=== PATIENT | male | born 1990 | race Caucasian/White ===

== ENCOUNTER 2018-08-12 14:27 | Emergency (ER) | payer OTHER ==
[2018-08-12 14:48] VITALS: BP 127/77
--- NOTE | 2018-08-12 15:02 | ED ---
Throat Pain/Nasal Congestion - HPI Summary HPI Summary: Pt complains of left ear pain. he states that it feels full. he took motrin this am without any significant relief. he denies any trauma, fever, chills, n/ v. - History of Current Complaint Chief Complaint: UCEar Hx Obtained From: Patient Onset/Duration: Sudden Onset Severity: Mild Associated Signs And Symptoms: Negative: Dysphagia, FB Sensation, Wheezing, Sinus Discomfort, Nasal Discharge - Epiglottits Risk Factors Epiglottis Risk Factors: Negative - Allergies/Home Medications Allergies/Adverse Reactions: Allergies Allergy/AdvReac Type Severity Reaction Status Date / Time No Known Allergies Allergy Verified 08/12/18 14:45 Home Medications: Home Medications Lisinopril TAB* [Prinivil TAB*] 10 mg PO DAILY 08/12/18 [History Confirmed 08/12] PMH/Surg Hx/FS Hx/Imm Hx Previously Healthy: Yes Endocrine/Hematology History: Denies: Hx Diabetes Cardiovascular History: Reports: Hx Hypertension Respiratory History: Denies: Hx Asthma Infectious Disease History: No Infectious Disease History: Denies: Traveled Outside the [place] in Last 30 Days - Family History Known Family History: Positive: None - Social History Alcohol Use: Weekly Alcohol Amount: once a week Substance Use Type: Reports: None Smoking Status (MU): Heavy Every Day Tobacco Smoker Type: Cigarettes Amount Used/How Often: 1/2 ppd Length of Time of Smoking/Using Tobacco: 6 years Review of Systems Constitutional: Negative Eyes: Negative Positive: Ear Ache. Negative: Epistaxis, Dental Pain, Sore Throat, Nasal Discharge Cardiovascular: Negative Respiratory: Negative Gastrointestinal: Negative Genitourinary: Negative Musculoskeletal: Negative Skin: Negative Neurological: Negative Psychological: Normal All Other Systems Reviewed And Are Negative: No Physical Exam Triage Information Reviewed: Yes Vital Signs On Initial Exam: Initial Vitals Temp Pulse Resp BP Pulse Ox 97.9 F 95 15 127/77 100 08/12/18 14:44 08/12/18 14:44 08/12/18 14:44 08/12/18 14:44 08/12/18 14:44 Vital Signs Reviewed: Yes Appearance: Positive: Well-Appearing, No Pain Distress, Well-Nourished Skin: Positive: Warm, Dry Head/Face: Positive: Normal Head/Face Inspection Eyes: Positive: Normal, EOMI, SANTHOSH ENT: Positive: Hearing grossly normal, Pharynx normal, Other - rt tm obscured by cerumen. left tm 75% obscured by cerumen. the tm that was visualized had a good light reflex. appeared slightly bulging. no erythema. Neck: Positive: Supple, Nontender Respiratory/Lung Sounds: Positive: Clear to Auscultation, Breath Sounds Present Cardiovascular: Positive: Normal, RRR Abdomen Description: Positive: Nontender, Soft Bowel Sounds: Positive: Present Musculoskeletal: Positive: Normal, Strength/ROM Intact Neurological: Positive: Normal, Sensory/Motor Intact, Alert, Oriented to Person Place, Time Psychiatric: Positive: Normal AVPU Assessment: Alert Diagnostics - Vital Signs Vital Signs Temp Pulse Resp BP Pulse Ox 08/12/18 14:44 97.9 F 95 15 127/77 100 - Laboratory Lab Statement: Any lab studies that have been ordered have been reviewed, and results considered in the medical decision making process. EENT Course/Dx - Course Course Of Treatment: pt has no evidence of an ear infection at the present time. I encouraged pt to take sudafed/tylenol and motrin for pain and discomfort. i further encouraged him to f/u with pcp for repeat ear check this week. - Diagnoses Provider Diagnoses: Earache on left Discharge - Sign-Out/Discharge Documenting (check all that apply): Patient Departure All imaging exams completed and their final reports reviewed: No Studies - Discharge Plan Condition: Stable Disposition: HOME Patient Education Materials: Earache (ED) Referrals: Penny Gonzalez NP [Primary Care Provider] - Additional Instructions: take tylenol/motrin and sudafed for congestion. return if worse or any new symptoms. followup with your primary care physician this week if not better. - Billing Disposition and Condition Condition: STABLE Disposition: Home
== END 2018-08-12 15:07 | disposition home or self-care (01) ==
LOC: UCCORT 14:27
DX: H92.02 Otalgia, left ear (principal); I10 Essential (primary) hypertension; F17.210 Nicotine dependence, cigarettes, uncomplicated
CPT/HCPCS: 99211; G0463